=== PATIENT | male | born 1980 | race Caucasian/White ===

== ENCOUNTER 2017-11-26 10:30 | Emergency (ER) | payer OTHER ==
[2017-11-26 10:44] VITALS: BMI 28.5
--- NOTE | 2017-11-26 13:49 | PDOC ---
History of Present Illness - General History Source: Patient Exam Limitations: No Limitations - History of Present Illness Initial Comments: 11/26/17 15:30 Patient is a 37 year old male with a significant past medical history of pulmonary embolism in August 2015 who presents to the ED with complaints of right sided back pain, s/p fall that occured 1 hour prior to ED visit. Patient reports walking outside when he tripped on black ice and fell causing immediate pain. He reports experiencing right shoulder pain, right rib pain, right knee pain and right ankle pain. Patient states he experienced right sided back pain but was unsure if it was a PE within his lung or due to fall so he came into the ED for further evaluation. Denies chest pain, SOB. Denies nausea, vomiting. Denies fevers, chills. Denies loss of consciousness, head injury. Denies any other symptoms. Allergies: None Social history: Current smoker (8 cigarettes per day). No alcohol. No illicit drugs. Surgical history: None PMD: Dr. 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 - Surgical History Abdominal Surgery: No Appendectomy: No Cardiac Surgery: No Cholecystectomy: No Gastric Stapling: No GI Surgery: No Lung Surgery: No Neurologic Surgery: No Orthopedic Surgery: No - Immunization History Immunization Up to Date: Yes - Suicide/Smoking/Psychosocial Hx Smoking Status: No Smoking History: Current every day smoker Have you smoked in the past 12 months: Yes Number of Cigarettes Smoked Daily: 8 Cigars Per Day: 20 Information on smoking cessation initiated: Yes 'Breaking Loose' booklet given: 11/26/17 Hx Alcohol Use: No Drug/Substance Use Hx: No Substance Use Type: None Hx Substance Use Treatment: No <Inna Arredondo - Last Filed: 11/26/17 18:52> - Past Medical History Allergies/Adverse Reactions: Allergies Allergy/AdvReac Type Severity Reaction Status Date / Time No Known Allergies Allergy Verified 11/26/17 10:37 Home Medications: Ambulatory Orders Warfarin Na [Coumadin -] 7.5 mg PO DAILY@1800 11/17/15 Duloxetine HCl [Cymbalta -] 30 mg PO DAILY #30 capsule. 11/22/15 Ranitidine [Zantac -] 150 mg PO DAILY #30 tablet 11/22/15 Pregabalin [Lyrica -] 50 mg PO HS #15 capsule 11/23/15 Ondansetron HCl [Zofran] 4 mg PO TID PRN #12 tablet 12/19/15 Alprazolam 1 mg PO DAILY #30 tablet MDD 1 05/10/16 Oxycodone HCl/Acetaminophen [Percocet 5-325 mg Tablet] 1 tab PO Q6H PRN #12 tablet MDD 4 tabs 11/26/17 Review of Systems - Review of Systems Able to Perform ROS?: Yes Comments:: 11/26/17 15:30 GENERAL/CONSTITUTIONAL: No fever or chills. No weakness. HEAD, EYES, EARS, NOSE AND THROAT: No change in vision. No ear pain or discharge. No sore throat. GASTROINTESTINAL: No nausea, vomiting, diarrhea or constipation. GENITOURINARY: No dysuria, frequency, or change in urination. CARDIOVASCULAR: No chest pain or shortness of breath. RESPIRATORY: No cough, wheezing, or hemoptysis. MUSCULOSKELETAL: +Right sided back pain. +right shoulder pain. +Right knee pain. +right ankle pain. No joint or muscle swelling or pain. No neck or back pain. SKIN: No rash NEUROLOGIC: No headache, vertigo, loss of consciousness, or change in strength/ sensation. ENDOCRINE: No increased thirst. No abnormal weight change. HEMATOLOGIC/LYMPHATIC: No anemia, easy bleeding, or history of blood clots. ALLERGIC/IMMUNOLOGIC: No hives or skin allergy. All Other Systems: Reviewed and Negative <Geovanni Newman - Last Filed: 11/26/17 15:30> *Physical Exam - Vital Signs Last Vital Signs Temp Pulse Resp BP Pulse Ox 98.2 F 101 H 20 131/75 100 11/26/17 10:31 11/26/17 10:31 11/26/17 10:31 11/26/17 10:31 11/26/17 10:31 <Geovanni Newman - Last Filed: 11/26/17 15:30> - Vital Signs Last Vital Signs Temp Pulse Resp BP Pulse Ox 98.2 F 101 H 20 131/75 100 11/26/17 10:31 11/26/17 10:31 11/26/17 10:31 11/26/17 10:31 11/26/17 10:31 - Physical Exam Comments: GENERAL: Awake, alert, and fully oriented, in no acute distress HEAD: No signs of trauma EYES: PERRLA, EOMI, sclera anicteric, conjunctiva clear ENT: Auricles normal inspection, hearing grossly normal, nares patent, oropharynx clear without exudates. Moist mucosa NECK: Normal ROM, supple, no lymphadenopathy, JVD, or masses LUNGS: Breath sounds equal, clear to auscultation bilaterally. No wheezes, and no crackles HEART: Regular rate and rhythm, normal S1 and S2, no murmurs, rubs or gallops ABDOMEN: Soft, nontender, normoactive bowel sounds. No guarding, no rebound. No masses MSK: +Tenderness to R anterior ribs, just below the nipple. B/L shoulders with pain to the anterior deltoid region, R shoulder with slightly dec ROM due to pain. R ankle with tenderness and swelling over the lateral malleolus. Distal N/ V intact. No clubbing or cyanosis. No cords, erythema, or tenderness NEUROLOGICAL: Cranial nerves II through XII grossly intact. Normal speech, normal gait SKIN: Warm, Dry, normal turgor, no rashes or lesions noted. <Inna Arredondo - Last Filed: 11/26/17 18:52> Medical Decision Making - Medical Decision Making Pt denies any chest pain prior to the fall. Fall with rib contusion is most likely etiology of pain, as PE would be unusual in this clinical presentation. XR obtained, no FX. Stable for DC home. <Inna Arredondo - Last Filed: 11/26/17 18:52> *DC/Admit/Observation/Transfer - Attestations Scribe Attestion: 11/26/17 15:31 Documentation prepared by Geovanni Newman, acting as medical psychotherapist for Inna Arredondo MD, /DO. <Geovanni Newman - Last Filed: 01/17/18 15:30> - Discharge Dispostion Admit: No <Inna Arredondo - Last Filed: 11/26/17 18:52> Diagnosis at time of Disposition: Chest wall pain - Discharge Dispostion Disposition: HOME Condition at time of disposition: Stable - Prescriptions Prescriptions: Oxycodone HCl/Acetaminophen [Percocet 5-325 mg Tablet] 1 tab PO Q6H PRN #12 tablet MDD 4 tabs PRN Reason: Pain - Referrals Referrals: Chayito Magdaleno MD [Primary Care Provider] - - Patient Instructions Printed Discharge Instructions: DI for Rib Contusion - Post Discharge Activity
[2017-11-26 15:56] VITALS: BP 125/78; PULSE 85; TEMP 98.1
== END 2017-11-26 15:53 | disposition home or self-care (01) ==
LOC: JER 10:30
DX: S20.211A Contusion of right front wall of thorax, initial encounter (principal); W00.2XXA Other fall from one level to another due to ice and snow, initial encounter; Y93.01 Activity, walking, marching and hiking; Y92.480 Sidewalk as the place of occurrence of the external cause; Y99.8 Other external cause status; Z86.711 Personal history of pulmonary embolism; Z79.01 Long term (current) use of anticoagulants
CPT/HCPCS: 71101-TC-RT; 73030-TC-LT; 73030-TC-RT; 73610-TC-RT; 73630-TC-RT; 99282-25

== ENCOUNTER 2019-01-15 10:51 | Inpatient (IN) | payer OTHER ==
--- NOTE | 2019-01-15 13:25 | PDOC ---
History of Present Illness - General Chief Complaint: Edema Stated Complaint: LT LEG SWELLING Time Seen by Provider: 01/15/19 11:37 History Source: Patient Exam Limitations: No Limitations - History of Present Illness Initial Comments: 01/15/19 12:28 39-year-old male with history of lupus and PE 4 presents to ED with complaints of left calf swelling and pain behind his left knee. 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 Patient currently denies chest pain, shortness of breath, headache, dizziness redness to the area , or sensory changes distal of discomfort. Timing/Duration: 24 hours Severity: mild Associated Symptoms: reports: other (left calf pain) Past History - Travel Traveled outside of the country in the last 30 days: No Close contact w/someone who was outside of country & ill: No - Past Medical History Allergies/Adverse Reactions: Allergies Allergy/AdvReac Type Severity Reaction Status Date / Time No Known Allergies Allergy Verified 01/15/19 10:52 Home Medications: Ambulatory Orders NK [No Known Home Medication] 01/15/19 COPD: No - Surgical History Abdominal Surgery: No Appendectomy: No Cardiac Surgery: No Cholecystectomy: No Gastric Stapling: No GI Surgery: No Lung Surgery: No Neurologic Surgery: No Orthopedic Surgery: No - Immunization History Immunization Up to Date: Yes - Suicide/Smoking/Psychosocial Hx Smoking Status: No Smoking History: Smoker current status UNK Have you smoked in the past 12 months: Yes Number of Cigarettes Smoked Daily: 6 Cigars Per Day: 20 Information on smoking cessation initiated: No 'Breaking Loose' booklet given: 09/03/15 Hx Alcohol Use: No Drug/Substance Use Hx: No Substance Use Type: Marijuana Hx Substance Use Treatment: No Patient Lives Alone: No Lives with/in: spouse/SO Review of Systems - Review of Systems Able to Perform ROS?: No Is the patient limited Estonian proficient: No Constitutional: No: Symptoms Reported HEENTM: No: Symptoms Reported Respiratory: No: Symptoms reported Cardiac (ROS): No: Symptoms Reported ABD/GI: No: Symptoms Reported : No: Symptoms Reported Musculoskeletal: Yes: Muscle Pain (left calf) Integumentary: Yes: Lumps (posterior left knee). No: Symptoms Reported Neurological: No: Symptoms reported Endocrine: No: Symptoms Reported Hematologic/Lymphatic: Yes: See HPI *Physical Exam - Vital Signs Last Vital Signs Temp Pulse Resp BP Pulse Ox 97.7 F 100 H 17 164/110 H 98 01/15/19 10:52 01/15/19 10:52 01/15/19 10:52 01/15/19 10:52 01/15/19 10:52 - Physical Exam General Appearance: Yes: Nourished, Appropriately Dressed. No: Apparent Distress HEENT: negative: Pale Conjunctivae Respiratory/Chest: positive: Lungs Clear, Normal Breath Sounds. negative: Respiratory Distress, Accessory Muscle Use Cardiovascular: positive: Regular Rhythm, Regular Rate (85). negative: Murmur Vascular Pulses: Dorsalis-Pedis (R): 2+, Doralis-Pedis (L): 2+ Gastrointestinal/Abdominal: positive: Soft. negative: Tenderness Extremity: positive: Normal Capillary Refill, Normal Inspection, Normal Range of Motion, Tender (left calf. Positive Homans sign). negative: Pedal Edema, Erythema Integumentary: positive: Normal Color, Warm, Moist Neurologic: positive: Motor Strength 5/5 ( ambulatory) Moderate Sedation - Procedure Monitoring Vital Signs: Procedure Monitoring Vital Signs Temperature 97.7 F 01/15/19 10:52 Pulse Rate 100 H 01/15/19 10:52 Respiratory Rate 17 01/15/19 10:52 Blood Pressure 164/110 H 01/15/19 10:52 O2 Sat by Pulse Oximetry (%) 98 01/15/19 10:52 ED Treatment Course - LABORATORY CBC & Chemistry Diagram: 01/17/19 06:10 01/16/19 07:40 - RADIOLOGY Radiology Studies Ordered: Category Date Time Status DUPLEX VASCUL US-1 LEG [US] Stat Ultrasound 01/15/19 12:21 Ordered Medical Decision Making - Medical Decision Making 01/15/19 12:30 Chief complaint: Left calf pain and discomfort behind left knee. 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 Exam. Patient with left calf tenderness and positive Homans sign. 2+ pedal pulses. Plan. Duplex of the lower extremity. 01/15/19 14:13 DVT noted involving the distal left popliteal artery. No Lackey cyst identified within the popliteal fossa. Patient ordered for labs and chest CTA 01/15/19 17:12 Laboratory Tests 01/15/19 13:51 PT with INR 11.80 INR 1.00 PTT (Actin FS) 26.7 01/15/19 17:12 Laboratory Tests 01/15/19 01/15/19 13:51 13:51 WBC 6.1 Hgb 12.4 Hct 35.8 D MPV 6.7 L D Absolute Neuts (auto) 4.3 Neutrophils % 70.3 Lymphocytes % 17.8 D Sodium 140 Potassium 4.2 Chloride 104 Carbon Dioxide 33 H Anion Gap 3 L BUN 10 Creatinine 1.2 Creat Clearance w eGFR > 60 Random Glucose 89 Calcium 8.7 Total Bilirubin 0.8 AST 39 H ALT 89 H Alkaline Phosphatase 63 Total Protein 8.1 Albumin 3.8 01/15/19 17:26 Bilateral acute appearing emboli are seen within the upper and lower lobe arteries bilaterally. There is also visualization of several segmental bilateral lower lobe emboli. No definitive CT evidence of right heart strain. There is also focal Perenchymal scarring with intermittent and lower lung fernando bilaterally are seen his previous CT 11/19/2015. Patient will be admitted to the hospital and heparin infusion ordered *DC/Admit/Observation/Transfer Diagnosis at time of Disposition: DVT (deep venous thrombosis), Pulmonary embolism - Discharge Dispostion Decision to Admit order: Yes - Referrals - Patient Instructions - Post Discharge Activity
[2019-01-15 14:11] LABS: BASO % 0.5 % (0-2.0); EOS % 4.3 % (0-4.5); HEMATOCRIT 35.8 % (35.4-49); HEMOGLOBIN 12.4 GM/dL (11.7-16.9); LYMPH % 17.8 % (8-40); MCH 32.5 pg (25.7-33.7); MCHC 34.8 g/dl (32.0-35.9); MEAN CELL VOLUME 93.5 fl (80-96); MEAN PLT VOLUME 6.7 fl (7.5-11.1); MONO % 7.1 % (3.8-10.2); NEUT % 70.3 % (42.8-82.8); PLATELET COUNT 163 K/MM3 (134-434); RBC 3.82 M/mm3 (4.00-5.60); RDW 13.7 % (11.9-15.9); WHITE BLOOD COUNT 6.1 K/mm3 (4.0-10.0)
[2019-01-15 14:46] LABS: ALBUMIN 3.8 g/dl (3.4-5.0); ALK PHOS 63 U/L (45-117); ANION GAP 3 MMOL/L (8-16); BILIRUBIN,TOTAL 0.8 mg/dL (0.2-1); BLOOD UREA NITROGEN 10 mg/dL (7-18); CALCIUM 8.7 mg/dL (8.5-10.1); CHLORIDE 104 mmol/L (98-107); CO2 33 mmol/L (21-32); CREATININE 1.2 mg/dL (0.55-1.3); GLUCOSE,RANDOM 89 mg/dL (74-106); POTASSIUM 4.2 mmol/L (3.5-5.1); SGOT/AST 39 U/L (15-37); SGPT/ALT 89 U/L (13-61); SODIUM 140 mmol/L (136-145); TOT PROT 8.1 g/dl (6.4-8.2)
[2019-01-15 15:06] LABS: PROTHROMBIN TIME (PATIENT) 11.8 SEC (9.7-13.0)
[2019-01-15 15:09] LABS: ACTIVATED PTT 26.7 SECONDS (25.2-36.5)
[2019-01-15] MEDS ORDERED: HEPARIN NA (PORCINE) 5,000 UNITS/ML 1ML VIAL IVPUSH ONE (17:22)
[2019-01-15] MEDS ORDERED: HEPARIN SOD,PORK IN 0.45% NACL 25,000 UNITS/500 ML INFUS.BAG IVPB SCH (17:30)
[2019-01-15] MEDS ORDERED: HEPARIN NA (PORCINE) 5,000 UNITS/ML 1ML VIAL ONE (17:32)
[2019-01-15] MEDS ORDERED: ACETAMINOPHEN 325 MG TABLET (FP) ONE (23:00)
[2019-01-16] MEDS ORDERED: oxyCODONE HCL 5 MG TABLET ONE (00:02)
[2019-01-16] MEDS ORDERED: HEPARIN NA (PORCINE) 5,000 UNITS/ML 1ML VIAL ONE (01:47)
[2019-01-16] MEDS ORDERED: ENOXAPARIN NA (PORCINE) 100 MG/1 ML DISP.SYRIN SQ ONE (04:46)
[2019-01-16] MEDS ORDERED: ENOXAPARIN NA (PORCINE) 40 MG/0.4 ML DISP.SYRIN SQ SCH (05:00)
[2019-01-16 07:24] VITALS: BMI 30.7
[2019-01-16 08:29] LABS: ALBUMIN 3.6 g/dl (3.4-5.0); ALK PHOS 57 U/L (45-117); ANION GAP 6 MMOL/L (8-16); BILIRUBIN,TOTAL 0.8 mg/dL (0.2-1); BLOOD UREA NITROGEN 9 mg/dL (7-18); CALCIUM 8.8 mg/dL (8.5-10.1); CHLORIDE 105 mmol/L (98-107); CO2 29 mmol/L (21-32); CREATININE 1.1 mg/dL (0.55-1.3); GLUCOSE,RANDOM 99 mg/dL (74-106); MAGNESIUM 2.4 mg/dL (1.8-2.4); PHOSPHOROUS 3.5 mg/dL (2.5-4.9); SGOT/AST 33 U/L (15-37); SGPT/ALT 69 U/L (13-61); SODIUM 139 mmol/L (136-145); TOT PROT 7.3 g/dl (6.4-8.2)
[2019-01-16 08:39] LABS: INR 1.07 (0.83-1.09); PROTHROMBIN TIME (PATIENT) 12.6 SEC (9.7-13.0)
[2019-01-16 08:41] LABS: ACTIVATED PTT 32.1 SECONDS (25.2-36.5)
[2019-01-16] MEDS ORDERED: ENOXAPARIN NA (PORCINE) 100 MG/1 ML DISP.SYRIN SQ SCH ×2 (10:45→22:00)
--- NOTE | 2019-01-16 11:12 | HP ---
Admitting History and Physical - Admission History of Present Illness: 39-year-old male with history of lupus and PE 4 presents to ED with complaints of left calf swelling and pain behind his left knee. 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 Patient currently denies chest pain, shortness of breath, headache, dizziness redness to the area , or sensory changes distal of discomfort. - Past Medical History Pulmonary: Yes: Pulmonary Embolus. No: Asthma Heme/Onc: Yes: Sickle Cell Trait Rheumatology: Yes: Lupus - Smoking History Smoking history: Current every day smoker Have you smoked in the past 12 months: Yes Aproximately how many cigarettes per day: 10 - Alcohol/Substance Use Hx Alcohol Use: No - Social History ADL: Independent Occupation: construction person History of Recent Travel: No Home Medications - Allergies Allergies/Adverse Reactions: Allergies Allergy/AdvReac Type Severity Reaction Status Date / Time No Known Allergies Allergy Verified 01/15/19 10:52 - Home Medications Home Medications: Ambulatory Orders NK [No Known Home Medication] 01/15/19 Family Disease History - Family Disease History Family Disease History: Other: Father (leg clot recently) Review of Systems - Review of Systems Cardiovascular: denies: Chest Pain Respiratory: denies: SOB Musculoskeletal: reports: Extremity Pain (left leg) Physical Examination Vital Signs: Vital Signs Temperature 97.6 F 01/16/19 10:00 Pulse Rate 74 01/16/19 10:00 Respiratory Rate 20 01/16/19 10:00 Blood Pressure 158/97 01/16/19 10:00 O2 Sat by Pulse Oximetry (%) 95 01/16/19 07:19 Cardiovascular: Yes: Regular Rate and Rhythm Respiratory: Yes: Regular, CTA Bilaterally Gastrointestinal: Yes: Soft Edema: Yes Edema: LLE: 1+ Labs: CBC, BMP 01/15/19 13:51 01/16/19 07:40 Imaging - Results Cat Scan: Report Reviewed Problem List - Problems (1) DVT (deep venous thrombosis) Assessment/Plan: -lovenox -hem consult Code(s): I82.409 - ACUTE EMBOLISM AND THOMBOS UNSP DEEP VN UNSP LOWER EXTREMITY (2) Pulmonary embolism Assessment/Plan: -lovenox -pulm and hem consult Code(s): I26.99 - OTHER PULMONARY EMBOLISM WITHOUT ACUTE COR PULMONALE
[2019-01-16] MEDS: oxyCODONE HCL 5 MG TABLET PO PRN ×2 (11:28→17:56)
--- NOTE | 2019-01-16 11:46 | PN ---
Progress Note (short form) - Note Progress Note: PULMONARY CONSULTATION DICTATED 01/16/19 IMP BILATERAL PULMONARY EMBOLI UNPROVOKED RECURRENT LLE DVT SICKLE CELL TRAIT SMOKER PLAN AC PT WILL REQUIRE [facility] AC ECHO W/U FOR HYPERCOAGULABLE STATE SMOKING CESSATION COUNSELED DR BARRIENTOS Problem List - Problems (1) DVT (deep venous thrombosis) Code(s): I82.409 - ACUTE EMBOLISM AND THOMBOS UNSP DEEP VN UNSP LOWER EXTREMITY (2) Pulmonary embolism Code(s): I26.99 - OTHER PULMONARY EMBOLISM WITHOUT ACUTE COR PULMONALE (3) Sickle cell trait Code(s): D57.3 - SICKLE-CELL TRAIT (4) Tobacco abuse Code(s): Z72.0 - TOBACCO USE (5) Tobacco abuse counseling Code(s): Z71.6 - TOBACCO ABUSE COUNSELING
--- NOTE | 2019-01-16 13:14 | CONS ---
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 Patient denied any nausea or vomiting. He denied any shortness of breath, although complains of some back pain. He presented to the emergency room with above. In the emergency room, he underwent a lower extremity duplex which was positive for DVT. He went for a CTA of the chest, which revealed bilateral pulmonary emboli. He was admitted to telemetry for further monitoring. Patient has history of tobacco use approximately half-pack per day for many years and currently still smokes. He denies any weight loss or night sweats. He denies hemoptysis. He denies a sedentary lifestyle. Patient states that he had a workup in the past for hypercoagulable state at [facility] years ago, but is unsure of the results. PAST MEDICAL HISTORY: Includes recurrent pulmonary emboli, sickle cell trait, and as per earlier. REVIEW OF SYSTEMS: No shortness of breath. Positive for back pain and chest pain. No nausea. No vomiting. No abdominal pain. Positive for left lower extremity discomfort and swelling. CURRENT MEDICATIONS: Include Lovenox and Roxicodone. PHYSICAL EXAMINATION: General: The patient is a well-developed, well-nourished male, awake, alert, and in no acute distress. Vital signs: He is afebrile, blood pressure is 158/97, respiratory rate 20, O2 saturation is 95% on room air. HEENT: Head is normocephalic atraumatic. Neck: Supple. Heart: Regular, S1, S2. Chest: Clear. Abdomen: Soft. Bowel sounds positive. Extremities: No cyanosis or edema. Left lower extremity left calf tenderness and mild swelling. LABORATORIES: WBC is 6.1, hemoglobin 12.4, hematocrit 35.8 with a platelet count of 163,000, 70 neutrophils, 17 lymphocytes, and 4 monocytes. INR is 1.07. BUN 9, creatinine 1.1. Previous workup RUIZ was negative, anticardiolipin antibodies has been negative (this was in 2014). Chest CTA reveals mild parenchymal scarring mid and lower lung fernando bilaterally, several mildly prominent mediastinal nodes, more prominence since previous exam of 2016, and bilateral pulmonary emboli. IMPRESSION: 1. Bilateral pulmonary emboli unprovoked, recurrent 2007, 2014. 2. Left lower extremity deep venous thrombosis. 3. Sickle cell trait. 4. Tobacco use. 5. Mild mediastinal adenopathy. PLAN: Continue anticoagulation, supplemental O2 as needed, workup of hypercoagulable state. Patient will require a life-long anticoagulation in view of recurrent episodes. Also will obtain followup chest CT as outpatient for mediastinal adenopathy. ALEXANDER BARRIENTOS M.D. AISHA/[id number] MTDD
--- NOTE | 2019-01-16 20:17 | CONSULT ---
Consult Consult Specialty:: hematology Referred by:: Dr. Magdaleno Reason for Consultation:: VTE - History of Present Illness Chief Complaint: leg swelling History of Present Illness: 39M, smoker, with hx PE x 3 (2007, 2014, 2015), not on AC, presented with left calf swelling. Found to have new distal left popliteal DVT. CTA with bilateral acute pulmonary emboli in upper and lower lobe lobar arteries. Also has several mildly prominent mediastinal LNs, slightly larger than in 2016. Started on Lovenox. Pt was on warfarin short-term after each of the PEs. 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 Has not had any problems with bleeding. No recent provoking factors as was the case with prior VTEs. Denies testosterone, steroid use. Denies weight loss, fevers, night sweats, melena, hematochezia Pt's father also had DVT. Mother has SLE. Prior thrombophilia w/u negative for prothrombin gene mutation, FVL, aCL and B2GPI. ATIII and protein C were normal. LAC positive x 1 per prior notes but can only find a negative result. - Past Medical History Pulmonary: Yes: Pulmonary Embolus. No: Asthma Rheumatology: Yes: Lupus - Alcohol/Substance Use Hx Alcohol Use: No - Smoking History Smoking history: Current every day smoker Have you smoked in the past 12 months: Yes Aproximately how many cigarettes per day: 10 - Social History Usual Living Arrangement: Alone ADL: Independent Occupation: construction safety consultant History of Recent Travel: No Home Medications - Allergies Allergies/Adverse Reactions: Allergies Allergy/AdvReac Type Severity Reaction Status Date / Time No Known Allergies Allergy Verified 01/15/19 10:52 - Home Medications Home Medications: Ambulatory Orders NK [No Known Home Medication] 01/15/19 Family Disease History - Family Disease History Family Disease History: Other: Father (leg clot recently) Review of Systems - Review of Systems Constitutional: reports: No Symptoms Eyes: reports: No Symptoms Cardiovascular: reports: No Symptoms Respiratory: reports: No Symptoms Gastrointestinal: reports: No Symptoms Genitourinary: reports: No Symptoms Physical Exam Vital Signs: Vital Signs Temperature 98.3 F 01/16/19 14:15 Pulse Rate 61 01/16/19 14:15 Respiratory Rate 18 01/16/19 14:15 Blood Pressure 134/91 01/16/19 14:15 O2 Sat by Pulse Oximetry (%) 94 L 01/16/19 09:00 Constitutional: Yes: Well Nourished, No Distress Eyes: Yes: Conjunctiva Clear Cardiovascular: Yes: Regular Rate and Rhythm Respiratory: Yes: Regular, CTA Bilaterally Gastrointestinal: Yes: Normal Bowel Sounds, Soft Edema: Yes Edema: LLE: 1+ Labs: CBC, BMP 01/15/19 13:51 01/16/19 07:40 Imaging - Results Cat Scan: Pending (doppler) Assessment/Plan 39M, smoker, with hx PE x 3 (2007, 2014, 2015), not on AC, presented with left calf swelling. Found to have a new distal left popliteal DVT. CTA with bilateral PE. Started on Lovenox. No respiratory symptoms. Needs indefinite anticoagulation given recurrent VTE. Pt understands his very high risk and agrees with plan. Please check APLA panel (lupus anticoagulant, B2GPI, aCL). If positive, would AC with warfarin. If negative, can be on a DOAC such as apixaban. Can check protein S functional assay (unable to find prior testing) but would not change management facilitator, can also send homocysteine. W/u of mild anemia with iron studies b12, folate Needs interval follow up of mediastinal LAD
[2019-01-16] MEDS: ENOXAPARIN NA (PORCINE) 100 MG/1 ML DISP.SYRIN SQ SCH (21:17)
[2019-01-17 07:30] LABS: BASO % 0.5 % (0-2.0); EOS % 4.4 % (0-4.5); HEMATOCRIT 36.1 % (35.4-49); HEMOGLOBIN 12.6 GM/dL (11.7-16.9); LYMPH % 20.9 % (8-40); MCH 32.6 pg (25.7-33.7); MCHC 34.9 g/dl (32.0-35.9); MEAN CELL VOLUME 93.3 fl (80-96); MEAN PLT VOLUME 7.5 fl (7.5-11.1); MONO % 7.4 % (3.8-10.2); NEUT % 66.8 % (42.8-82.8); PLATELET COUNT 172 K/MM3 (134-434); RBC 3.87 M/mm3 (4.00-5.60); RDW 13.4 % (11.9-15.9)
[2019-01-17 08:57] LABS: ALBUMIN 3.6 g/dl (3.4-5.0); ALK PHOS 56 U/L (45-117); ANION GAP 6 MMOL/L (8-16); BILIRUBIN,TOTAL 0.6 mg/dL (0.2-1); BLOOD UREA NITROGEN 11 mg/dL (7-18); CALCIUM 8.5 mg/dL (8.5-10.1); CHLORIDE 106 mmol/L (98-107); CHOLESTEROL 223 mg/dL (50-200); CO2 27 mmol/L (21-32); CREATININE 1.1 mg/dL (0.55-1.3); GLUCOSE,RANDOM 97 mg/dL (74-106); HDL CHOLESTEROL 34 mg/dL (40-60); POTASSIUM 4.1 mmol/L (3.5-5.1); SGOT/AST 29 U/L (15-37); SGPT/ALT 60 U/L (13-61); SODIUM 138 mmol/L (136-145); TOT PROT 7.4 g/dl (6.4-8.2); TRIGLYCERIDES 251 mg/dL (0-150)
[2019-01-17] MEDS: ENOXAPARIN NA (PORCINE) 100 MG/1 ML DISP.SYRIN SQ SCH ×2 (09:40→21:59)
--- NOTE | 2019-01-17 11:38 | PN ---
Progress Note, Physician - Current Medication List Current Medications: Active Medications Enoxaparin Sodium (Lovenox -) 100 mg SQ BID GANGA Last Admin: 01/17/19 09:40 Dose: 100 mg Oxycodone HCl (Roxicodone -) 5 mg PO Q6H PRN PRN Reason: PAIN LEVEL 6-10 Last Admin: 01/16/19 17:56 Dose: 5 mg - Objective Vital Signs: Vital Signs Temperature 97.4 F L 01/17/19 03:39 Pulse Rate 63 01/17/19 03:39 Respiratory Rate 20 01/17/19 10:00 Blood Pressure 139/77 01/17/19 03:39 O2 Sat by Pulse Oximetry (%) 98 01/17/19 10:00 Cardiovascular: Yes: Regular Rate and Rhythm Respiratory: Yes: Regular, CTA Bilaterally Gastrointestinal: Yes: Normal Bowel Sounds, Soft Labs: CBC, BMP 01/17/19 06:10 01/17/19 06:10 INR, PTT INR 1.07 (0.83-1.09) 01/16/19 07:40 Problem List - Problems (1) DVT (deep venous thrombosis) Assessment/Plan: -lovenox -hem consult Code(s): I82.409 - ACUTE EMBOLISM AND THOMBOS UNSP DEEP VN UNSP LOWER EXTREMITY (2) Pulmonary embolism Assessment/Plan: -lovenox -pulm and hem consult Code(s): I26.99 - OTHER PULMONARY EMBOLISM WITHOUT ACUTE COR PULMONALE
--- NOTE | 2019-01-17 12:48 | PN ---
Progress Note, Physician History of Present Illness: PULMONARY ALERT,FEELING BETTER,-SOB,LESS LLE DISCOMFORT - Current Medication List Current Medications: Active Medications Enoxaparin Sodium (Lovenox -) 100 mg SQ BID [facility] Last Admin: 01/17/19 09:40 Dose: 100 mg Oxycodone HCl (Roxicodone -) 5 mg PO Q6H PRN PRN Reason: PAIN LEVEL 6-10 Last Admin: 01/16/19 17:56 Dose: 5 mg - Objective Vital Signs: Vital Signs Temperature 97.4 F L 01/17/19 03:39 Pulse Rate 63 01/17/19 03:39 Respiratory Rate 20 01/17/19 10:00 Blood Pressure 139/77 01/17/19 03:39 O2 Sat by Pulse Oximetry (%) 98 01/17/19 10:00 Constitutional: Yes: Well Nourished, Calm Eyes: Yes: WNL HENT: Yes: WNL, Tonsillar Exudate Cardiovascular: Yes: Regular Rate and Rhythm, S1, S2 Respiratory: Yes: CTA Bilaterally Gastrointestinal: Yes: Normal Bowel Sounds, Soft Extremities: Yes: Other (LESS TENDERNESS,LESS SWELLING LLE) Edema: Yes Labs: CBC, BMP 01/17/19 06:10 01/17/19 06:10 INR, PTT INR 1.07 (0.83-1.09) 01/16/19 07:40 Problem List - Problems (1) DVT (deep venous thrombosis) Code(s): I82.409 - ACUTE EMBOLISM AND THOMBOS UNSP DEEP VN UNSP LOWER EXTREMITY (2) Pulmonary embolism Code(s): I26.99 - OTHER PULMONARY EMBOLISM WITHOUT ACUTE COR PULMONALE (3) Sickle cell trait Code(s): D57.3 - SICKLE-CELL TRAIT (4) Tobacco abuse Code(s): Z72.0 - TOBACCO USE (5) Tobacco abuse counseling Code(s): Z71.6 - TOBACCO ABUSE COUNSELING Assessment/Plan IMP BILATERAL PULMONARY EMBOLI UNPROVOKED RECURRENT 2007,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 SICKLE CELL TRAIT SMOKER MILD MEDIASTINAL ADENOPATHY PLAN AC PT WILL REQUIRE LIFELONG AC LOVENO ECHO W/U FOR HYPER-COAGULABLE STATE SMOKING CESSATION COUNSELED F/U CHEST CT OUTPATIENT DR BARRIENTOS Problem List - Problems (1) DVT (deep venous thrombosis) Code(s): I82.409 - ACUTE EMBOLISM AND THOMBOS UNSP DEEP VN UNSP LOWER EXTREMITY (2) Pulmonary embolism Code(s): I26.99 - OTHER PULMONARY EMBOLISM WITHOUT ACUTE COR PULMONALE (3) Sickle cell trait Code(s): D57.3 - SICKLE-CELL TRAIT (4) Tobacco abuse Code(s): Z72.0 - TOBACCO USE (5) Tobacco abuse counseling Code(s): Z71.6 - TOBACCO ABUSE COUNSELING
[2019-01-17] MEDS: oxyCODONE HCL 5 MG TABLET PO PRN ×2 (14:08→21:57)
--- NOTE | 2019-01-17 19:19 | PN ---
Progress Note, Physician Chief Complaint: left leg swelling History of Present Illness: Feels well. Denies chest pain, sob. leg pain resolved. Denies bleeding. - Current Medication List Current Medications: Active Medications Enoxaparin Sodium (Lovenox -) 100 mg SQ BID [facility] Last Admin: 01/17/19 09:40 Dose: 100 mg Oxycodone HCl (Roxicodone -) 5 mg PO Q6H PRN PRN Reason: PAIN LEVEL 6-10 Last Admin: 01/17/19 14:08 Dose: 5 mg - Objective Vital Signs: Vital Signs Temperature 98.1 F 01/17/19 13:30 Pulse Rate 63 01/17/19 13:30 Respiratory Rate 18 01/17/19 13:30 Blood Pressure 156/95 01/17/19 13:30 O2 Sat by Pulse Oximetry (%) 98 01/17/19 10:00 Constitutional: Yes: Well Nourished, No Distress Eyes: Yes: Conjunctiva Clear Cardiovascular: Yes: Regular Rate and Rhythm Respiratory: Yes: Regular, CTA Bilaterally Gastrointestinal: Yes: Normal Bowel Sounds, Soft Extremities: Yes: WNL Edema: No Labs: CBC, BMP 01/17/19 06:10 01/17/19 06:10 INR, PTT INR 1.07 (0.83-1.09) 01/16/19 07:40 Assessment/Plan 39M, smoker, with hx PE x 3 (2007, 2014, 2015), not on AC, presented with left calf swelling. Found to have a new distal left popliteal DVT. CTA with bilateral PE. Started on Lovenox. No respiratory symptoms. Needs indefinite anticoagulation given recurrent VTE. Pt understands his very high risk and agrees with plan. Please check APLA panel (lupus anticoagulant, B2GPI, aCL). If positive, would AC with warfarin. If negative, can be on a DOAC such as apixaban. Can check protein S functional assay (unable to find prior testing) but would not international exchange coordinator, homocysteine pending W/u of mild anemia: b12, folate wnl, awaiting iron studies Needs interval follow up of mediastinal LAD
[2019-01-18] MEDS: ENOXAPARIN NA (PORCINE) 100 MG/1 ML DISP.SYRIN SQ SCH ×2 (09:09→21:43)
--- NOTE | 2019-01-18 11:58 | PN ---
Progress Note, Physician History of Present Illness: PULMONARY ALERT,NO DISTRESS,-SOB,-CP,-BACK PAIN - Current Medication List Current Medications: Active Medications Enoxaparin Sodium (Lovenox -) 100 mg SQ BID [facility] Last Admin: 01/18/19 09:09 Dose: 100 mg Oxycodone HCl (Roxicodone -) 5 mg PO Q6H PRN PRN Reason: PAIN LEVEL 6-10 Last Admin: 01/17/19 21:57 Dose: 5 mg Warfarin Sodium (Coumadin -) 10 mg PO DAILY@1800 [facility] - Objective Vital Signs: Vital Signs Temperature 98.2 F 01/18/19 06:58 Pulse Rate 64 01/18/19 06:58 Respiratory Rate 20 01/18/19 06:58 Blood Pressure 137/90 01/18/19 06:58 O2 Sat by Pulse Oximetry (%) 95 01/17/19 22:00 Constitutional: Yes: Well Nourished, Calm Eyes: Yes: WNL HENT: Yes: WNL Neck: Yes: WNL Cardiovascular: Yes: Regular Rate and Rhythm, S1, S2 Respiratory: Yes: CTA Bilaterally Gastrointestinal: Yes: Normal Bowel Sounds, Soft Extremities: Yes: WNL, Other (LESS SSWLLING LLE) Labs: CBC, BMP Problem List - Problems (1) DVT (deep venous thrombosis) Code(s): I82.409 - ACUTE EMBOLISM AND THOMBOS UNSP DEEP VN UNSP LOWER EXTREMITY (2) Pulmonary embolism Code(s): I26.99 - OTHER PULMONARY EMBOLISM WITHOUT ACUTE COR PULMONALE (3) Sickle cell trait Code(s): D57.3 - SICKLE-CELL TRAIT (4) Tobacco abuse Code(s): Z72.0 - TOBACCO USE (5) Tobacco abuse counseling Code(s): Z71.6 - TOBACCO ABUSE COUNSELING Assessment/Plan IMP BILATERAL PULMONARY EMBOLI UNPROVOKED RECURRENT 2007,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 SICKLE CELL TRAIT SMOKER MILD MEDIASTINAL ADENOPATHY PLAN AC PT WILL REQUIRE LIFELONG AC LOVENOX ECHO PENDING W/U FOR HYPER-COAGULABLE STATE OUTPATIENT SMOKING CESSATION COUNSELED F/U CHEST CT OUTPATIENT DR BARRIENTOS Problem List - Problems (1) DVT (deep venous thrombosis) Code(s): I82.409 - ACUTE EMBOLISM AND THOMBOS UNSP DEEP VN UNSP LOWER EXTREMITY (2) Pulmonary embolism Code(s): I26.99 - OTHER PULMONARY EMBOLISM WITHOUT ACUTE COR PULMONALE (3) Sickle cell trait Code(s): D57.3 - SICKLE-CELL TRAIT (4) Tobacco abuse Code(s): Z72.0 - TOBACCO USE (5) Tobacco abuse counseling Code(s): Z71.6 - TOBACCO ABUSE COUNSELING
--- NOTE | 2019-01-18 12:09 | PN ---
Progress Note, Physician Chief Complaint: L calf tenderness PE History of Present Illness: Previous notes and events reviewed awake and alert NAD states feeling less tenderness to L calf denies chest pain and SOB - Current Medication List Current Medications: Active Medications Enoxaparin Sodium (Lovenox -) 100 mg SQ BID [facility] Last Admin: 01/18/19 09:09 Dose: 100 mg Oxycodone HCl (Roxicodone -) 5 mg PO Q6H PRN PRN Reason: PAIN LEVEL 6-10 Last Admin: 01/17/19 21:57 Dose: 5 mg Warfarin Sodium (Coumadin -) 10 mg PO DAILY@1800 [facility] - Objective Vital Signs: Vital Signs Temperature 98.2 F 01/18/19 06:58 Pulse Rate 64 01/18/19 06:58 Respiratory Rate 20 01/18/19 06:58 Blood Pressure 137/90 01/18/19 06:58 O2 Sat by Pulse Oximetry (%) 95 01/17/19 22:00 Constitutional: Yes: Well Nourished, No Distress, Calm Eyes: Yes: Conjunctiva Clear HENT: Yes: Atraumatic Cardiovascular: Yes: Regular Rate and Rhythm Respiratory: Yes: Regular, CTA Bilaterally Gastrointestinal: Yes: Normal Bowel Sounds, Soft Musculoskeletal: Yes: WNL Extremities: Yes: WNL Edema: No Neurological: Yes: Alert, Oriented Psychiatric: Yes: Alert, Oriented Labs: CBC, BMP 01/17/19 06:10 01/17/19 06:10 INR, PTT INR 1.07 (0.83-1.09) 01/16/19 07:40 Problem List - Problems (1) DVT (deep venous thrombosis) Assessment/Plan: -continue with lovenox -currently on coumadin 10mg PO -heme consult -daily INR monitoring -therapeutic INR range 2-3, current INR level 1.07 -pending lupus and homocysteine work up -repeat chest CT as outpatient Code(s): I82.409 - ACUTE EMBOLISM AND THOMBOS UNSP DEEP VN UNSP LOWER EXTREMITY (2) Pulmonary embolism Assessment/Plan: -continue with lovenox -currently on coumadin 10mg PO -heme consult -daily INR monitoring -therapeutic INR range 2-3, current INR level 1.07 Code(s): I26.99 - OTHER PULMONARY EMBOLISM WITHOUT ACUTE COR PULMONALE Assessment/Plan see problem list
[2019-01-18] MEDS ORDERED: WARFARIN NA 5 MG TABLET (UD) PO SCH (18:00)
[2019-01-19 07:02] LABS: HEMATOCRIT 39.3 % (35.4-49); HEMOGLOBIN 13.8 GM/dL (11.7-16.9); MCH 32.5 pg (25.7-33.7); MEAN CELL VOLUME 92.7 fl (80-96); MEAN PLT VOLUME 7.5 fl (7.5-11.1); PLATELET COUNT 196 K/MM3 (134-434); RBC 4.24 M/mm3 (4.00-5.60); RDW 13.5 % (11.9-15.9); WHITE BLOOD COUNT 7.5 K/mm3 (4.0-10.0)
[2019-01-19 07:16] LABS: INR 1.15 (0.83-1.09); PROTHROMBIN TIME (PATIENT) 13.6 SEC (9.7-13.0)
[2019-01-19 07:36] LABS: ALK PHOS 56 U/L (45-117); ANION GAP 9 MMOL/L (8-16); BILIRUBIN,TOTAL 0.6 mg/dL (0.2-1); BLOOD UREA NITROGEN 13 mg/dL (7-18); CALCIUM 8.5 mg/dL (8.5-10.1); CHLORIDE 108 mmol/L (98-107); CO2 23 mmol/L (21-32); CREATININE 1.1 mg/dL (0.55-1.3); GLUCOSE,RANDOM 91 mg/dL (74-106); SGOT/AST 65 U/L (15-37); SGPT/ALT 101 U/L (13-61); SODIUM 140 mmol/L (136-145); TOT PROT 7.9 g/dl (6.4-8.2)
--- NOTE | 2019-01-19 09:55 | DS ---
Physical Examination Vital Signs: Vital Signs Temperature 97.4 F L 01/19/19 06:00 Pulse Rate 57 L 01/19/19 06:00 Respiratory Rate 18 01/19/19 06:00 Blood Pressure 142/85 01/19/19 06:00 O2 Sat by Pulse Oximetry (%) 97 01/18/19 22:00 Cardiovascular: Yes: Regular Rate and Rhythm Respiratory: Yes: Regular, CTA Bilaterally Gastrointestinal: Yes: Normal Bowel Sounds, Soft Labs: CBC, BMP 01/19/19 06:30 01/19/19 06:30 Discharge Summary Reason For Visit: PULMONARY EMBOLISM Current Active Problems DVT (deep venous thrombosis) (Acute) Pulmonary embolism (Acute) Tobacco abuse counseling (Acute) Hospital Course: - Problems (1) DVT (deep venous thrombosis) Assessment/Plan: -continue with lovenox-pt will inject -currently on coumadin 10mg PO -heme consult -INR monitoring -therapeutic INR range 2.5-3.5, current INR level 1.07 -pending lupus and homocysteine work up -repeat chest CT as outpatient Code(s): I82.409 - ACUTE EMBOLISM AND THOMBOS UNSP DEEP VN UNSP LOWER EXTREMITY (2) Pulmonary embolism Assessment/Plan: -continue with lovenox -currently on coumadin 10mg PO -heme consult -daily INR monitoring -therapeutic INR range 2.5-3.5, current INR level 1.07 Code(s): I26.99 - OTHER PULMONARY EMBOLISM WITHOUT ACUTE COR PULMONALE Assessment/Plan see problem list Condition: Improved - Instructions Referrals: Chayito Magdaleno MD [Staff Physician] - 01/22/19 Isaac Pena MD [Staff Physician] - 1 Week Disposition: HOME - Home Medications Comprehensive Discharge Medication List: Ambulatory Orders Enoxaparin [Lovenox -] 100 mg SQ BID #20 disp.syrin 01/18/19 Warfarin Na [Coumadin -] 10 mg PO DAILY@1800 #60 tablet 01/18/19
[2019-01-19] MEDS: ENOXAPARIN NA (PORCINE) 100 MG/1 ML DISP.SYRIN SQ SCH (10:05)
[2019-01-19 10:26] VITALS: BP 150/93; PULSE 64; TEMP 98.4
[2019-01-19 11:29] LABS: DRVVT - 30.3 sec (0.0-47.0)
--- NOTE | 2019-01-19 13:22 | PN ---
Progress Note (short form) - Note Progress Note: PULMONARY Denies shortness of breath or chest pain. Vital Signs Period Temp Pulse Resp BP Sys/Barrientos Pulse Ox Last 24 Hr 97.4 F-98.9 F 57-77 16-18 141-156/85-96 97-98 Gen: NAD at rest Heart: RRR Lung: clear to auscultation Abd: soft, nontender Ext: no edema CBC, BMP 01/19/19 06:30 01/19/19 06:30 Active Medications Enoxaparin Sodium (Lovenox -) 100 mg SQ BID [facility] Last Admin: 01/19/19 10:05 Dose: 100 mg Warfarin Sodium (Coumadin -) 10 mg PO DAILY@1800 [facility] Last Admin: 01/18/19 17:11 Dose: 10 mg A/P Recurrent Pulmonary Emboli LLE DVT Sickle Cell Trait Smoker Mediastinal Adenopathy - continue anticoagulation - O2 as needed - f/u chest imaging as outpt - d/c planning in progress
== END 2019-01-19 14:59 | disposition home or self-care (01) | DRG 299 ==
LOC: JER 10:51 → J4S 17:28
PROVIDERS: ADMIT Internal Medicine; ATTEND Family Medicine
DX: I82.432 Acute embolism and thrombosis of left popliteal vein (principal); I26.99 Other pulmonary embolism without acute cor pulmonale; D57.3 Sickle-cell trait; F17.210 Nicotine dependence, cigarettes, uncomplicated; R59.0 Localized enlarged lymph nodes; D64.9 Anemia, unspecified
CPT/HCPCS: 36415; 71275-TC; 80048; 80053; 80061; 82607; 82746; 83090; 83721; 83735; 84100; 84443; 85025; 85027; 85610; 85613; 85730; 85732; 93971-TC; 99285-25; J1644

== ENCOUNTER 2020-09-21 20:25 | Inpatient (IN) | payer OTHER ==
[2020-09-21 20:50] VITALS: BMI 27.1
[2020-09-21 21:29] LABS: BASO % 0.6 % (0-2.0); HEMATOCRIT 56.4 % (35.4-49); HEMOGLOBIN 19.8 GM/dL (11.7-16.9); MCH 30.7 pg (25.7-33.7); MCHC 35.1 g/dl (32.0-35.9); MEAN CELL VOLUME 87.3 fl (80-96); MEAN PLT VOLUME 8.3 fl (7.5-11.1); NEUT % 89.4 % (42.8-82.8); PLATELET COUNT 404 K/MM3 (134-434); RBC 6.46 M/mm3 (4.00-5.60); RDW 13.6 % (11.9-15.9); WHITE BLOOD COUNT 28.6 K/mm3 (4.0-10.0)
[2020-09-21 21:40] LABS: PROTHROMBIN TIME (PATIENT) 23.7 SEC (9.7-13.0)
[2020-09-21] MEDS ORDERED: ACETAMINOPHEN 1000 MG/100 ML VIAL (NON FORMULARY) IVPB ONE (21:42)
[2020-09-21] MEDS ORDERED: ONDANSETRON 4 MG/2 ML VIAL IVPUSH ONE (21:42)
[2020-09-21] MEDS ORDERED: LACTATED RINGERS SOLUTION 1000 ML INFUS.BAG IV ONE (21:42)
[2020-09-21] MEDS ORDERED: MAGNESIUM SULF 50% (8.12 MEQ/2 ML-1 GM VIAL) IVPB ONE (21:43)
[2020-09-21 21:51] LABS: CHLORIDE 85 mmol/L (98-107); SODIUM 126 mmol/L (136-145)
[2020-09-21 21:54] LABS: ALBUMIN 5.2 g/dl (3.4-5.0); BLOOD UREA NITROGEN 35.2 mg/dL (7-18); CALCIUM 10.8 mg/dL (8.5-10.1); CO2 30 mmol/L (21-32); GLUCOSE,RANDOM 125 mg/dL (74-106)
[2020-09-21 21:57] LABS: CREATININE 3.8 mg/dL (0.55-1.3)
[2020-09-21 21:59] LABS: BILIRUBIN,TOTAL 1.6 mg/dL (0.2-1); TOT PROT 11.6 g/dl (6.4-8.2)
[2020-09-21 22:00] LABS: ALK PHOS 74 U/L (45-117)
[2020-09-21 22:19] LABS: ANION GAP 12 MMOL/L (8-16); SGOT/AST 152 U/L (15-37); SGPT/ALT 63 U/L (13-61)
[2020-09-21 22:20] LABS: LIPASE < 10 U/L (73-393)
[2020-09-21 22:22] LABS: POTASSIUM 8.8 mmol/L (3.5-5.1)
[2020-09-21] MEDS ORDERED: ACETAMINOPHEN INJECTION 100 ML IVPB ONE (22:25)
[2020-09-21 22:39] LABS: PLATELET ESTIMATE ADEQUATE
[2020-09-22 04:58] LABS: POTASSIUM 3.1 mmol/L (3.5-5.1)
[2020-09-22 05:00] LABS: BLOOD UREA NITROGEN 44.8 mg/dL (7-18); CALCIUM 9.7 mg/dL (8.5-10.1)
[2020-09-22 05:04] LABS: CREATININE 4.1 mg/dL (0.55-1.3)
[2020-09-22 05:08] LABS: N-TERMINAL BNP 458.2 pg/ml (5-125)
[2020-09-22] MEDS ORDERED: KCL 10 MEQ IVPB 10 MEQ/100 ML INFUS.BAG IVPB ONE ×3 (05:22→09:58)
[2020-09-22] MEDS: KCL 10 MEQ IVPB 10 MEQ/100 ML INFUS.BAG IVPB SCH ×8 (05:54→21:27)
[2020-09-22] MEDS ORDERED: SODIUM CHLORIDE 1,000 ML IV STA (06:21)
[2020-09-22] MEDS ORDERED: FAMOTIDINE 10 MG TABLET PO ONE (06:24)
[2020-09-22] MEDS ORDERED: POTASSIUM CHLORIDE TABS 20 MEQ TABLET.ER (FP) PO ONE (06:24)
[2020-09-22] MEDS ORDERED: PROCHLORPERAZINE INJECTION 10 MG/2 ML VIAL IM PRN (06:27)
[2020-09-22] MEDS ORDERED: WARFARIN NA 7.5 MG TABLET (FP) PO ONE ×2 (06:31→06:32)
[2020-09-22] MEDS ORDERED: WARFARIN NA 1 MG TABLET PO ONE (06:32)
[2020-09-22] MEDS ORDERED: WARFARIN NA 1 MG TABLET ONE (06:40)
[2020-09-22] MEDS ORDERED: FAMOTIDINE 20 MG TABLET ONE (06:40)
[2020-09-22] MEDS ORDERED: WARFARIN NA 5 MG TABLET ONE (06:41)
[2020-09-22 07:13] LABS: CHLORIDE 82 mmol/L (98-107); SODIUM 125 mmol/L (136-145)
[2020-09-22 07:16] LABS: BLOOD UREA NITROGEN 38.8 mg/dL (7-18); CO2 28 mmol/L (21-32)
[2020-09-22 07:23] LABS: CREATININE 3.7 mg/dL (0.55-1.3)
[2020-09-22 07:25] LABS: ANION GAP 16 MMOL/L (8-16)
[2020-09-22 07:28] LABS: GLUCOSE,RANDOM 41 mg/dL (74-106); POTASSIUM > 10.0 mmol/L (3.5-5.1)
[2020-09-22] MEDS ORDERED: SODIUM CHLORIDE 1,000 ML IV SCH (08:00)
[2020-09-22] MEDS ORDERED: MAGNESIUM SULF 50% (8.12 MEQ/2 ML-1 GM VIAL) IVPB ONE (10:14)
[2020-09-22] MEDS ORDERED: MAGNESIUM SULFATE IN WATER 2 GM/50 ML IVPB IVPB ONE ×2 (10:30→11:07)
[2020-09-22] MEDS ORDERED: LACTATED RINGERS SOLUTION 1,000 ML/1,000 ML INFUS.BAG IV SCH (10:30)
[2020-09-22 12:54] LABS: EPI CELLS 26 /uL (0-25.1); HYALINE CASTS 37 /uL (0-3.1); URINE APPEARANCE CLOUDY; URINE BACTERIA 21 /uL (0-1359); URINE BILIRUBIN NEGATIVE (NEGATIVE); URINE COLOR YELLOW; URINE GLUCOSE (UA) NEGATIVE (NEGATIVE); URINE KETONE NEGATIVE (NEGATIVE); URINE LEUK ESTERASE NEGATIVE (NEGATIVE); URINE NITRITE NEGATIVE (NEGATIVE); URINE PROTEIN 1+ (NEGATIVE); URINE RBC 16 /uL (0-23.9); URINE UROBILINOGEN 0.2 mg/dL (0.2-1.0); URINE WBC 35 /uL (0-25.8)
[2020-09-22 13:05] LABS: COCAINE, UR NEGATIVE ng/ml (CUTOFF=300); METHADONE, UR NEGATIVE ng/ml (CUTOFF=300); URINE BARBITURATES NEGATIVE ng/ml (CUTOFF=200); URINE BENZODIAZEPINES NEGATIVE ng/ml (CUTOFF=200)
[2020-09-22 13:06] LABS: PHENCYCLIDINE,URINE NEGATIVE ng/ml (CUTOFF=25); URINE AMPHETAMINES NEGATIVE ng/ml (CUTOFF=500)
[2020-09-22 13:09] LABS: OPIATES, URI POSITIVE ng/ml (CUTOFF=300)
[2020-09-22] MEDS: LACTATED RINGERS SOLUTION 1,000 ML/1,000 ML INFUS.BAG IV SCH (15:39)
[2020-09-22 16:38] LABS: BASO % 0.1 % (0-2.0); HEMATOCRIT 44.1 % (35.4-49); HEMOGLOBIN 15.5 GM/dL (11.7-16.9); MCH 30.6 pg (25.7-33.7); MCHC 35.2 g/dl (32.0-35.9); MEAN PLT VOLUME 7.9 fl (7.5-11.1); MONO % 7.6 % (3.8-10.2); NEUT % 86.3 % (42.8-82.8); PLATELET COUNT 232 K/MM3 (134-434); RBC 5.07 M/mm3 (4.00-5.60); WHITE BLOOD COUNT 20.7 K/mm3 (4.0-10.0)
[2020-09-22 16:50] LABS: INR 2.15 (0.83-1.09); PROTHROMBIN TIME (PATIENT) 25.9 SEC (9.7-13.0)
[2020-09-22 17:06] LABS: POTASSIUM 3.1 mmol/L (3.5-5.1)
[2020-09-22 17:07] LABS: BLOOD UREA NITROGEN 45.3 mg/dL (7-18); CALCIUM 8.8 mg/dL (8.5-10.1)
[2020-09-22 17:09] LABS: BLOOD UREA NITROGEN 45.3 mg/dL (7-18); CALCIUM 8.7 mg/dL (8.5-10.1); MAGNESIUM 2.7 mg/dL (1.8-2.4)
[2020-09-22 17:11] LABS: CREATININE 2.4 mg/dL (0.55-1.3)
[2020-09-22 17:12] LABS: BILIRUBIN,DIRECT 0.3 mg/dL (0.0-0.2); CREATININE 2.3 mg/dL (0.55-1.3)
[2020-09-22 17:13] LABS: PHOSPHOROUS 3.9 mg/dL (2.5-4.9)
[2020-09-22 17:14] LABS: BILIRUBIN,TOTAL 1.2 mg/dL (0.2-1)
[2020-09-22 17:18] LABS: URIC ACID 9.1 mg/dL (2.6-7.2)
[2020-09-22 17:24] LABS: TOT PROT 7.9 g/dl (6.4-8.2)
[2020-09-22] MEDS ORDERED: ACETAMINOPHEN 325 MG TABLET (FP) PO PRN (17:36)
[2020-09-22] MEDS: POTASSIUM CHLORIDE ORAL LIQUID 20 MEQ/15 ML PO SCH ×2 (17:50→17:55)
[2020-09-22 18:04] LABS: HIV INTERPRETATION NEGATIVE (NEGATIVE)
[2020-09-22 18:43] LABS: PLATELET ESTIMATE NORMAL
[2020-09-22] MEDS: FAMOTIDINE 20 MG/50 ML IVPB 20 MG/50 ML MG IVPB SCH (21:27)
[2020-09-22] MEDS ORDERED: ACETAMINOPHEN 1000 MG/100 ML VIAL (NON FORMULARY) IVPB ONE (21:30)
[2020-09-23] MEDS ORDERED: ACETAMINOPHEN 1000 MG/100 ML VIAL (NON FORMULARY) IVPB ONE (04:00)
[2020-09-23] MEDS: LACTATED RINGERS SOLUTION 1,000 ML/1,000 ML INFUS.BAG IV SCH ×3 (05:39→22:05)
[2020-09-23 08:30] LABS: BASO % 0.1 % (0-2.0); EOS % 0.1 % (0-4.5); HEMATOCRIT 40.7 % (35.4-49); HEMOGLOBIN 14.2 GM/dL (11.7-16.9); LYMPH % 9.4 % (8-40); MCH 30.2 pg (25.7-33.7); MCHC 34.8 g/dl (32.0-35.9); MEAN CELL VOLUME 86.8 fl (80-96); MEAN PLT VOLUME 8.1 fl (7.5-11.1); NEUT % 81.4 % (42.8-82.8); PLATELET COUNT 207 K/MM3 (134-434); RBC 4.69 M/mm3 (4.00-5.60); RDW 12.9 % (11.9-15.9)
[2020-09-23 08:38] LABS: INR 2.71 (0.83-1.09); PROTHROMBIN TIME (PATIENT) 31.9 SEC (9.7-13.0)
[2020-09-23 08:54] LABS: POTASSIUM 3.3 mmol/L (3.5-5.1)
[2020-09-23 08:56] LABS: BLOOD UREA NITROGEN 30.9 mg/dL (7-18)
[2020-09-23 08:57] LABS: ALBUMIN 3.7 g/dl (3.4-5.0); MAGNESIUM 2.5 mg/dL (1.8-2.4)
[2020-09-23 09:00] LABS: CREATININE 1.3 mg/dL (0.55-1.3); PHOSPHOROUS 2.4 mg/dL (2.5-4.9)
[2020-09-23 09:01] LABS: BILIRUBIN,TOTAL 1.4 mg/dL (0.2-1); TOT PROT 7.3 g/dl (6.4-8.2)
[2020-09-23] MEDS: FAMOTIDINE 20 MG/50 ML IVPB 20 MG/50 ML MG IVPB SCH ×2 (10:49→22:03)
[2020-09-23] MEDS ORDERED: POTASSIUM CHLORIDE TABS 20 MEQ TABLET.ER (FP) PO ONE (12:14)
[2020-09-23] MEDS: PANTOPRAZOLE 40 MG TABLET PO SCH (12:30)
[2020-09-23] MEDS ORDERED: WARFARIN NA 7.5 MG TABLET (FP) PO SCH (18:00)
[2020-09-24] MEDS ORDERED: ZOLPIDEM TARTRATE 5 MG TABLET PO ONE (00:06)
[2020-09-24] MEDS: LACTATED RINGERS SOLUTION 1,000 ML/1,000 ML INFUS.BAG IV SCH (06:00)
[2020-09-24 08:20] LABS: BASO % 0.1 % (0-2.0); EOS % 0.5 % (0-4.5); HEMATOCRIT 38.8 % (35.4-49); HEMOGLOBIN 13.5 GM/dL (11.7-16.9); LYMPH % 14.1 % (8-40); MCH 30.4 pg (25.7-33.7); MCHC 34.9 g/dl (32.0-35.9); MEAN CELL VOLUME 87.1 fl (80-96); MEAN PLT VOLUME 7.9 fl (7.5-11.1); NEUT % 75.3 % (42.8-82.8); PLATELET COUNT 195 K/MM3 (134-434); RBC 4.45 M/mm3 (4.00-5.60); RDW 12.8 % (11.9-15.9); WHITE BLOOD COUNT 9.8 K/mm3 (4.0-10.0)
[2020-09-24 08:22] LABS: POTASSIUM 3.4 mmol/L (3.5-5.1)
[2020-09-24 08:26] LABS: INR 2.4 (0.83-1.09); PROTHROMBIN TIME (PATIENT) 28.8 SEC (9.7-13.0)
[2020-09-24 08:56] LABS: ALBUMIN 3.6 g/dl (3.4-5.0); BLOOD UREA NITROGEN 19.2 mg/dL (7-18); CALCIUM 8.5 mg/dL (8.5-10.1); MAGNESIUM 2.4 mg/dL (1.8-2.4)
[2020-09-24 08:59] LABS: CREATININE 1.1 mg/dL (0.55-1.3)
[2020-09-24 09:01] LABS: TOT PROT 6.9 g/dl (6.4-8.2)
[2020-09-24] MEDS ORDERED: POTASSIUM CHLORIDE TABS 20 MEQ TABLET.ER (FP) PO ONE (09:58)
[2020-09-24] MEDS: PANTOPRAZOLE 40 MG TABLET PO SCH (11:08)
[2020-09-24] MEDS: FAMOTIDINE 20 MG/50 ML IVPB 20 MG/50 ML MG IVPB SCH (11:08)
[2020-09-24 12:40] VITALS: BP 150/103; PULSE 61; TEMP 98.9
[2020-09-26 16:08] LABS: ATYPICAL pANCA <1:20 titer (Neg:<1:20); C-ANCA <1:20 titer (Neg:<1:20)
== END 2020-09-24 13:00 | disposition home or self-care (01) | DRG 683 ==
LOC: JER 20:25 → JERBED 09-22 05:19 → J5S 09-22 12:20
PROVIDERS: ADMIT Hospitalist; ATTEND Nurse Practitioner Family
PROC: 05HM33Z Insertion of Infusion Device into Right Internal Jugular Vein, Percutaneous Approach (ICD-10-PCS; principal; 2020-09-24)
PROC: B513ZZA Fluoroscopy of Right Jugular Veins, Guidance (ICD-10-PCS; 2020-09-24)
DX: N17.0 Acute kidney failure with tubular necrosis (principal); E87.1 Hypo-osmolality and hyponatremia; E87.3 Alkalosis; M62.82 Rhabdomyolysis; I27.82 Chronic pulmonary embolism; N01.7 Rapidly progressive nephritic syndrome with diffuse crescentic glomerulonephritis; R11.2 Nausea with vomiting, unspecified; E87.8 Other disorders of electrolyte and fluid balance, not elsewhere classified; E86.0 Dehydration; F14.90 Cocaine use, unspecified, uncomplicated; R63.0 Anorexia; Z68.27 Body mass index [BMI] 27.0-27.9, adult; E80.6 Other disorders of bilirubin metabolism; E87.6 Hypokalemia; M32.9 Systemic lupus erythematosus, unspecified; E87.5 Hyperkalemia; D57.3 Sickle-cell trait; D72.829 Elevated white blood cell count, unspecified; N28.1 Cyst of kidney, acquired; Z79.01 Long term (current) use of anticoagulants
CPT/HCPCS: 36415; 71045-TC-FY; 76775-TC; 80048; 80053; 80074; 80307; 81003; 82248; 82436; 82550; 82553; 82565; 82784; 83520; 83690; 83735; 83880; 83993; 84100; 84133; 84155; 84165; 84300; 84439; 84443; 84484; 84550; 85025; 85610; 86038; 86256; 86850; 86900; 86901; 87040; 87045; 87046; 87086; 87177; 87205; 87209; 87324; 87389; 87449; 93005; 93010; 99285-25; C9803; J0131; U0003

== ENCOUNTER 2021-05-22 15:53 | Emergency (ER) | payer OTHER ==
[2021-05-22 16:21] VITALS: TEMP 98; BMI 29.1
[2021-05-22] MEDS ORDERED: ASPIRIN 81 MG CHEWABLE TABLETS PO ONE (16:40)
[2021-05-22 18:02] LABS: BASO % 0.2 % (0-2.0); EOS % 0.4 % (0-4.5); HEMATOCRIT 45.5 % (35.4-49); HEMOGLOBIN 15.7 GM/dL (11.7-16.9); LYMPH % 8.4 % (8-40); MCH 30.7 pg (25.7-33.7); MCHC 34.6 g/dl (32.0-35.9); MEAN CELL VOLUME 88.9 fl (80-96); MEAN PLT VOLUME 7.3 fl (7.5-11.1); MONO % 7.3 % (3.8-10.2); NEUT % 83.7 % (42.8-82.8); PLATELET COUNT 269 10^3/uL (134-434); RBC 5.12 M/mm3 (4.00-5.60); RDW 13.9 % (11.9-15.9); WHITE BLOOD COUNT 9.9 K/mm3 (4.0-10.0)
[2021-05-22 18:07] LABS: INR 1.43 (0.83-1.09); PROTHROMBIN TIME (PATIENT) 17.4 SEC (9.7-13.0)
[2021-05-22 18:10] LABS: ACTIVATED PTT 28.7 SECONDS (25.2-36.5)
[2021-05-22 18:14] LABS: CHLORIDE 103 mmol/L (98-107); SODIUM 138 mmol/L (136-145)
[2021-05-22 18:19] LABS: CALCIUM 9.4 mg/dL (8.5-10.1)
[2021-05-22 18:20] LABS: ALBUMIN 4.5 g/dl (3.4-5.0); ANION GAP 7 MMOL/L (8-16); BLOOD UREA NITROGEN 13.3 mg/dL (7-18); CO2 27 mmol/L (21-32); GLUCOSE,RANDOM 98 mg/dL (74-106); MAGNESIUM 2.1 mg/dL (1.8-2.4)
[2021-05-22 18:23] LABS: SGOT/AST 21 U/L (15-37); SGPT/ALT 42 U/L (13-61)
[2021-05-22 18:24] LABS: BILIRUBIN,TOTAL 1.1 mg/dL (0.2-1); TOT PROT 8.9 g/dl (6.4-8.2)
[2021-05-22 18:25] LABS: ALK PHOS 69 U/L (45-117)
[2021-05-22 19:20] VITALS: BP 137/103; PULSE 60
[2021-05-22] MEDS ORDERED: ALBUTEROL SO4 HFA INHALER IH ONE ×2 (21:12→21:45)
== END 2021-05-22 21:57 | disposition home or self-care (01) ==
LOC: JER 15:53
PROC: 3E0F7GC Introduction of Other Therapeutic Substance into Respiratory Tract, Via Natural or Artificial Opening (ICD-10-PCS; principal; 2021-05-22)
DX: R07.81 Pleurodynia (principal); J45.909 Unspecified asthma, uncomplicated
CPT/HCPCS: 36415; 71046-TC-FY; 71275-TC; 80053; 82550; 83735; 84484; 85025; 85379; 85610; 85730; 93005; 93010; 99285-25; C9803; Q9967; U0003; U0005